=== PATIENT | male | born 1975 | race Caucasian/White ===

== ENCOUNTER 2018-08-21 14:26 | Emergency (ER) | payer OTHER ==
[~2018-08-21] VITALS: Ht 190.5 cm; Wt 100.2 kg
[2018-08-21 14:32] VITALS: Ht 190.5 cm; Wt 100.2 kg
[2018-08-21 16:38] LABS: microscopic required? NO
[2018-08-21 16:51] LABS: BASOPHIL % 0.4 % (0-2); PLATELET COUNT 236 x10^3mcL (130-400); RED CELL DISTRIBUTION WIDTH 12.9 % (11.5-14.5); urine erythrocyte NEGATIVE (NEGATIVE)
[2018-08-21 16:52] LABS: CALCIUM 8.9 mg/dL (8.5-10.1); CARBON DIOXIDE 26.2 mmol/L (21-32); CHLORIDE SERUM 102 mmol/L (98-107); CREATININE SERUM 1.1 mg/dL (0.7-1.3); GFR1 > 60 mL/min; GLUCOSE SERUM 100 mg/dL (74-106); POTASSIUM SERUM 3.8 mmol/L (3.5-5.1); SODIUM SERUM 138 mmol/L (136-145)
[2018-08-21 17:00] LABS: AMPHETAMINE QUAL UR NONE DETECTED (See below)
[2018-08-21 17:05] LABS: ALKALINE PHOSPHATASE 100 U/L (46-116); ALT/SGPT 36 U/L (16-63); AST/SGOT 17 U/L (15-37); BILIRUBIN TOTAL 0.96 mg/dL (0.20-1.00); LIPASE 159 IU/L (73-393); T4(THYROXINE) 7.6 ug/dL (4.7-13.3); TOTAL PROTEIN, SERUM 7.7 g/dL (6.4-8.2)
[2018-08-21 17:48] VITALS: BP 136/75
== END 2018-08-21 18:28 | disposition home or self-care (01) ==
LOC: ED 14:26
PROVIDERS: Emergency Medicine
DX: B34.9 Viral infection, unspecified (principal)
CPT/HCPCS: 82962; 87804; J7030

== ENCOUNTER 2018-08-29 15:23 | Emergency (ER) | payer OTHER ==
[~2018-08-29] VITALS: Ht 193 cm; Wt 99.8 kg
[2018-08-29 15:38] VITALS: Ht 193 cm; Wt 99.8 kg
[2018-08-29 16:43] LABS: BASOPHIL % 0.7 % (0-2); PLATELET COUNT 214 x10^3mcL (130-400); RED CELL DISTRIBUTION WIDTH 13.1 % (11.5-14.5)
[2018-08-29 16:44] LABS: CALCIUM 8.6 mg/dL (8.5-10.1); CARBON DIOXIDE 26.2 mmol/L (21-32); CREATININE SERUM 1.4 mg/dL (0.7-1.3); POTASSIUM SERUM 3.5 mmol/L (3.5-5.1)
[2018-08-29 16:48] LABS: ALBUMIN 3.8 g/dL (3.4-5.0); BILIRUBIN TOTAL 0.49 mg/dL (0.20-1.00); TOTAL PROTEIN, SERUM 7.1 g/dL (6.4-8.2)
[2018-08-29 17:56] LABS: AMPHETAMINE QUAL UR NONE DETECTED (See below)
[2018-08-29 18:52] VITALS: BP 128/59
== END 2018-08-29 18:52 | disposition home or self-care (01) ==
LOC: ED 15:23
PROVIDERS: Emergency Medicine
DX: R55 Syncope and collapse (principal); R53.1 Weakness; R53.83 Other fatigue; R25.1 Tremor, unspecified
CPT/HCPCS: J7030